=== PATIENT | male | born 1950 | race Two or more races ===

== ENCOUNTER 2024-06-12 06:58 | Day surgery (SDC) | payer OTHER, SELFPAY ==
[2024-06-09 08:51] VITALS: BMI 44.5
[2024-06-09 09:40] LABS: % Basophils 0.6 % (0-2); % Immature Granulocytes 0.2 % (0-0.5); % Lymphocytes 19.2 % (20.5-51.1); % Monocytes 19.2 % (1.7-9.3); % Neutrophils 58.8 % (42.2-75.2); Absolute Eosinophils 0.1 10^3/uL (0-0.7); Hematocrit 36.3 % (39.0-52.0); Hemoglobin 12.2 g/dL (13.0-18.0); Mean Corp Hgb Conc. 33.6 g/dL (33.0-37.0); Mean Corpuscular Hgb 32.7 pg (27.0-31.0); Mean Corpuscular Volume 97.3 fL (80.0-94.0); Mean Platelet Volume 9.9 fL (7.4-10.4); Nucleated Red Blood Cells % 0 % (-); Platelet Count 174 10^3/uL (130-400); Red Blood Cell Count 3.73 10^6/uL (4.70-6.10); Red Cell Dist. Width 13.5 % (11.5-14.5); White Blood Cell Count 5.1 10^3/uL (4.8-10.8)
[2024-06-09 10:10] LABS: ALT (SGPT) 37 U/L (0-50); AST (SGOT) 33 U/L (17-59); Alkaline Phosphatase 61 U/L (38-126); Blood Urea Nitrogen 29 mg/dl (9-20); Calcium 9.2 mg/dl (8.4-10.2); Carbon Dioxide 27 mmol/L (22-30); Chloride 104 mmol/L (98-107); Estimated Creatinine Clearance 61 ml/min; Glucose 147 mg/dl (70-99); Potassium 4.4 mmol/L (3.5-5.1); Sodium 138 mmol/L (135-145); Total Bilirubin 0.5 mg/dl (0.2-1.3); Total Protein 6.7 g/dl (6.3-8.2); eGFR > 60.00
[2024-06-09 10:57] LABS: INR 0.96; PT 13.1 Sec (11.4-14.6)
[2024-06-12] VITALS (13 sets, daily range): BP systolic 98–130; BP diastolic 57–95; BMI 44.5
[2024-06-12] MEDS: NSS 353 ML IV (08:01)
[2024-06-12 10:38] LABS: ACT-LR - POC 350 Seconds (116-155)
[2024-06-12 10:59] LABS: ACT-LR - POC 279 Seconds (116-155)
--- NOTE | 2024-06-12 11:08 | ITS.CL.ANGIO ---
Student Accounts Coordinator - Angioplasty
Angioplasty
Procedure Report:
CARDIAC CATHETERIZATION REPORT
Date of Procedure: 06/12/2024
Referring: Vivek Camarena D.O.
INDICATION: Dyspnea on exertion, known coronary artery disease with impaired anginal warning, abnormal stress test.
PROCEDURE:
1. Left heart catheterization
2. Coronary angiography.
3. Bypass angiography.
4. Successful PCI of the SVG to diagonal graft.
A total of 56 minutes of procedural/moderate sedation was utilized. An independent medical pathologist was present to assist with and help manage the patient's level of consciousness and physiologic status.
ACCESS:
1. Sick Micronesian right common femoral artery using a modified Seldinger technique with a micropuncture kit under ultrasound guidance. Ultrasound image obtained.
CATHETERS:
1. 5 Micronesian JL 4.
2. 5 Micronesian JR4.
3. 5 Micronesian RAUL.
4. 5 Micronesian MP 2.
5. 6 Micronesian AL-1 guiding catheter.
HEMODYNAMIC DATA
Weight (kg): 117.5
AO (s/d/x, mmHg): 106/79/86
LV (s/x mmHg): 106/20
LEFT VENTRICULOGRAPHY: Not performed.
CORONARY ANGIOGRAPHY
Dominance: Right.
Left Main: Chronically totally occluded at its origin.
LAD: Normal size vessel giving rise to 1 significant diagonal. The vessel is chronically totally occluded throughout its proximal margin. The mid and distal vessel supplied by patent SAUCEDO graft. The diagonal is supplied by a patent SVG.
Ramus: Congenitally absent.
Circumflex: Normal size, nondominant vessel giving rise to 1 large obtuse marginal. The vessel is chronically totally occluded in its proximal margin. The vessel supplied by a patent left radial artery graft.
RCA: Normal size, dominant vessel. The vessel is chronically totally occluded at the ostium through the distal RCA. The RPDA is supplied by a patent SVG with a downward origin requiring a multipurpose catheter for engagement.
BYPASS GRAFT ANGIOGRAPHY
SAUCEDO to LAD: Normal size graft with end-to-side anastomosis to the mid LAD. There is no evidence of stenosis or graft degeneration.
LRA to OM: Normal size graft with end-to-side anastomosis to the obtuse marginal. There is no evidence of stenosis or graft degeneration.
SVG to RPDA: Normal size graft with downward origin requiring a multipurpose catheter for engagement and end-to-side anastomosis to the RPDA. There is no evidence of stenosis or graft degeneration.
SVG to D1: Normal size graft with end-to-side anastomosis to the first diagonal. There is a hazy, 90% lesion in the mid graft.
INTERVENTION(S)
1. Successful PCI of the 90% lesion in the mid SVG to diagonal graft (Medtronic [place] 3.0 x 15 ASHLEY, postdilated with a 3.0 NC balloon) with reduction in stenosis to 0%, maintaining ELLA-3 flow.
Narrative:
The decision was made to proceed with percutaneous coronary intervention. The diagnostic catheter was removed over a wire and a 6Fr AL-1 guiding catheter was advanced to the aortic root and seated in the SVG to D1. Additional heparin was given and a
Power Turn Flex wire was advanced into the diagonal through the vein graft. A 6 mm spider wire was prepped on the back table and advanced over the power turn flex. The spider wire was deployed approximately 15 to 20 mm distal to the lesion. The
90% mid SVG lesion was predilated with a 2.0 x 12 semi-compliant balloon to 12 boone. The semi-compliant balloon was removed and a Medtronic [place] 3.0 x 15 drug-eluting stent was advanced. The stent was deployed at 12 atmospheres. The stent
balloon was removed. A 3.0 x 12 noncompliant balloon was advanced into the stent and the stent was postdilated to 16 atmospheres. Angiography was performed in orthogonal views, confirming good stent expansion and an excellent angiographic result.
The spider wire was recaptured then withdrawn and the guide was disengaged from the artery. The catheter was removed over a standard J-wire.
Closure Device: 6 Micronesian Angio-Seal.
Radiation (mGy): 1868.65
DAP (cm2.Gy): 131.56
Fluoroscopy time (minutes): 11.9
CONCLUSIONS
1. 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
SVG to D1 graft, status post successful PCI (Medtronic [place] 3.0 x 15 ASHLEY, postdilated with a 3.0 NC balloon) with reduction in stenosis to 0%, maintaining ELLA-3 flow.
2. Moderately elevated filling pressures (LVEDP = 20 mmHg at 117.5 kg), likely appropriate for given ejection fraction (LVEF 20% by report).
3. New diagnosis of paroxysmal atrial fibrillation, CHADS2-Vasc = 5 (CHF, HTN, Age x2, Vascular Disease).
RECOMMENDATIONS:
1. Expectant management after cardiac catheterization via right common femoral approach.
2. Limited weight bearing for one week.
3. Antithrombotic therapy with clopidogrel and apixaban for at least 12 months, followed by apixaban indefinitely.
4. Continue aggressive secondary prevention with high-dose, high potency statin, inclisiran. Goal LDL <55.
5. OMT/GDMT as hemodynamics will tolerate. Increase metoprolol to 50 mg twice daily for assistance with rate control with paroxysmal atrial fibrillation.
6. Consider atrial fibrillation ablation given recent fall off and systolic function.
7. Referral to cardiac rehab.
Copy to: Vivek Camarena D.O., Jovan Rivera D.O.
Alexys Cortes, DO, FACC, FACP
--- NOTE | 2024-06-12 15:35 | W.PN.UPDATE ---
Update Note
Progress Note Update
Pt seen post VG-Diagonal PCI w/1 ASHLEY. Right femoral cath site without ht/bleeding, non tender. OOB, urinating without difficulty. Post EKG SB 55 w/1st deg AVB. Pre cath EKG was AFib w/controlled rates. History of AFib post CABG and had been on
amiodarone and warfarin at the time. He has had no documented AFib since then, and both amio and warfarin had been discontinued in favor of daily aspirin. [id number].
Pt to be on plavix 75mg daily and eliquis 5mg BID. Aspirin will be discontinued. Discussed AFib and stroke risk with pt/ and they are agreeable to OAC. Cost is acceptable per pt.
Cardiac rehab consulted. Followup w/Dr. Camarena in July as scheduled.
Home today if cath site/tele remain stable.
== END 2024-06-12 16:15 | disposition home or self-care (01) ==
LOC: CATH 06:58
PROVIDERS: ATTENDING PHYSICIAN Internal Medicine Cardiovascular Disease; FAMILY PHYSICIAN Internal Medicine; OTHER PHYSICIAN Internal Medicine Cardiovascular Disease; OTHER PHYSICIAN Physician Assistant Medical
DX: I25.119 Atherosclerotic heart disease of native coronary artery with unspecified angina pectoris (principal); Z95.1 Presence of aortocoronary bypass graft; I77.9 Disorder of arteries and arterioles, unspecified; I50.22 Chronic systolic (congestive) heart failure; I11.0 Hypertensive heart disease with heart failure; E78.5 Hyperlipidemia, unspecified; Z68.41 Body mass index [BMI] 40.0-44.9, adult; R00.2 Palpitations; R05.9 Cough, unspecified; Z86.718 Personal history of other venous thrombosis and embolism; Z85.46 Personal history of malignant neoplasm of prostate; Z92.3 Personal history of irradiation; M19.90 Unspecified osteoarthritis, unspecified site; Z79.82 Long term (current) use of aspirin; Z79.899 Other long term (current) drug therapy; G47.33 Obstructive sleep apnea (adult) (pediatric); Z87.891 Personal history of nicotine dependence
CPT/HCPCS: 99152; 99153; 36415; 80053; 85025; 85347; 85610; 93005; 93459; C1725; C1760; C1874; C1884; C1887; C1894; C9604; Q9967